=== PATIENT | male | born 1955 | race Caucasian/White ===

== ENCOUNTER → 2018-12-22 | Outpatient (CLI) | payer OTHER ==
[~2018-12-22] MED LIST: LIPITOR40 MG PO
== END | disposition home or self-care (01) ==
LOC: RAD 13:31
DX: R31.9 Hematuria, unspecified (principal); N50.82 Scrotal pain; Z98.890 Other specified postprocedural states; Z79.899 Other long term (current) drug therapy

== ENCOUNTER → 2018-12-29 | Outpatient (CLI) | payer OTHER | END | disposition home or self-care (01) | LOC: RAD 07:51 | DX: C61 Malignant neoplasm of prostate (principal); N99.89 Other postprocedural complications and disorders of genitourinary system; Z79.899 Other long term (current) drug therapy ==

== ENCOUNTER 2019-05-08 11:41 | Emergency (ER) | payer OTHER ==
[~2019-05-08] VITALS: Ht 172.7 cm; Wt 77.1 kg
[2019-05-08 11:43] VITALS: BP 128/82
[2019-05-08] MEDS ORDERED: ADDERALL 20 MG20 M1 PO (11:49)
[2019-05-08] MEDS ORDERED: CENTRUM SILVER1 EAC2 PO (11:50)
[2019-05-08 13:10] LABS: HEMATOCRIT 44.5 % (42.0-52.0); HEMOGLOBIN 14.8 gm/dL (14.0-18.0); MCH 30.3 pg (26.0-34.0); MCHC 33.3 g/dL (28.0-37.0); RBC 4.89 mil/uL (4.50-6.00); RDW 14.4 % (10.5-14.5); WBC 16.9 thou/uL (4.0-11.0)
[2019-05-08 13:17] LABS: CALCIUM 9.1 mg/dL (8.5-10.1); CREATININE 1.1 mg/dL (0.7-1.3); POTASSIUM 3.7 mmol/L (3.5-5.1)
[2019-05-08 13:24] LABS: PROTIME 10.5 Seconds (9.3-11.4)
== END 2019-05-09 02:16 | disposition home or self-care (01) ==
LOC: ER 11:41
PROVIDERS: Physician Assistant
DX: S22.31XA Fracture of one rib, right side, initial encounter for closed fracture (principal); S32.491A Other specified fracture of right acetabulum, initial encounter for closed fracture; E78.5 Hyperlipidemia, unspecified; Z79.899 Other long term (current) drug therapy; W11.XXXA Fall on and from ladder, initial encounter; Y93.89 Activity, other specified; Y92.89 Other specified places as the place of occurrence of the external cause; Y99.9 Unspecified external cause status

== ENCOUNTER 2019-05-14 10:40 | Inpatient (IN) | payer OTHER ==
[~2019-05-14] VITALS: Ht 172.7 cm; Wt 77.1 kg
--- NOTE | ~2019-05-14 | PLAN ---
[facility] [place] [address] REHAB UNIT PLAN OF CARE Name: AMY SUNG Room #: 512-P ADM IN M.R.#: [id number] Admission: 05/14/19 Attend Phys: David Jordan MD Discharge: Date of : 57 Report #: [id number] THIS REPORT FOR: //name// CC: David Philip DATE OF SERVICE: 05/16/2019 PROGRESS NOTE/OVERALL PLAN OF CARE SUBJECTIVE: The patient is seen earlier in followup. He has been in no distress. Temperature 36.7, pulse 81, respirations 20, blood pressure 122/68. He has been working in therapies with transfers, standby assistance. Gait 25 feet front-wheeled walker. He is limited to toe touch weightbearing. In occupational therapy, he has been mod assist for lower body dressing. ASSESSMENT: 1. Right acetabular fracture with right pelvis fracture, status post open reduction and internal fixation on 05/09/2019. He is limited to, toe-touch weightbearing. 2. Ileus, using stool softeners. 3. Acute blood loss anemia. 4. Hyperlipidemia. 5. History of prostate cancer. 6. Factor V deficiency. 7. Deep venous thrombosis prophylaxis. PLAN: The overall plan of care is based on the preadmission screen, post-admission physician evaluation and information garnered from therapy assessments. 1. Estimated length of stay is probably 7-14 days pending progress. 2. Medical prognosis is reasonably good. 3. Anticipated interventions includes the interdisciplinary acute inpatient rehabilitation program. 4. Anticipated functional outcomes would be for the patient to become modified independent with transfers, mobility and ADLs. 5. Discharge destination would be back to the home setting. 6. Expected therapy by discipline includes PT and OT 1-1/2 hours per day each five days a week throughout the duration of the acute inpatient rehabilitation stay. By: [id number] David Jordan MD /[facility]
[~2019-05-14 10:40] MED LIST changes: +ADDERALL 20 MG20 M1 PO; +CENTRUM SILVER1 EAC2 PO
[2019-05-14] MEDS ORDERED: ENOXAPARIN40 MG/0.1 SUBQ (11:41)
[2019-05-14] MEDS ORDERED: ROBAXIN 750 MG750 MG PO (11:42)
[2019-05-14] MEDS ORDERED: MIRALAX17 GM PO (11:44)
[2019-05-14] MEDS ORDERED: APAP650 PO (11:46)
[2019-05-14] MEDS ORDERED: ASPIRIN81 M2 PO (11:48)
[2019-05-14] MEDS ORDERED: LIPITOR 20 MG T20 M1 PO (11:49)
[2019-05-14] MEDS ORDERED: VITAMIN D1000 UNI1 PO (11:50)
[2019-05-14] MEDS ORDERED: FISH OIL-OMEGA1 EACH PO (11:52)
[2019-05-14] MEDS ORDERED: VITAMIN B COMP1 EACH PO (11:54)
--- NOTE | 2019-05-14 13:24 | NUR ---
1245 NEW ADMIT TO ROOM 512. PATIENT IS ALERT AND ORIENTED X4. PATIENT GRIMES'S, WRECKING MECHANIC ARE EQUAL. PATIENT LUNGS ARE CLEAR. ABD IS SOFT WITH BSX4. PATIENT VOIDS PER URINAL. PATIENT PLEASANT AND COOPERATIVE. UP IN CHAIR. AT BEDSIDE. IS R.T. HERE AT [facility]. FALL AND SAFETY PROTOCOLS IN PLACE. DENIES PAIN AT THIS TIME. PATIENT IS TOE TOUCH WT BEARING ONLY AT THIS TIME. PT, OT EVALS IN PROGRESS. WILL CONTINUE TO MONITER.
[2019-05-14 13:30] VITALS: BP 131/78
--- NOTE | 2019-05-14 16:50 | NUR ---
chart review, pt new to [facility] this afternoon. dc from [facility], pt had falling off ladder which is what took him to [facility]. pt is a & o x 4, and able to make his needs know. intro to cm, transition of care, dme, and team meeting. " i am ready to work with therapy and get home"/pt. per pt and chart " lives home with spouse, 2 story home. 2 steps to enter home. stairs inside the home. 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 pt will be able to stay on main level if needed."/mercy and chart. pt has family support. pt ttwb. will cont following as needed for dc needs. pcp dr jorge.
[2019-05-14 19:45] VITALS: BP 114/73
--- NOTE | 2019-05-15 03:45 | NUR ---
ASSUMED CARES AT 0700. PT AWAKE, ALERT AND ORIENTED*4. C/O PAIN ON LEFT HIP/PELVIS, TYLENOL ADMINISTERED NEEDED. BRUISING REMAINS ON LEFT HIP AND PELVIS, INCISION ON LOWER ABDOMEN REMAIN DRY AND INTACT. ABDOMEN SOFT AND ROUND WITH HYPOACTIVE BS. MIRALAX HELD PER PT'S REQUEST (STATED THAT HE'D HAD MULTIPLE LIQUID STOOLS TODAY). UP WITH 1 MIN ASSIST, PIVOT TRANSFERS TO COMMODE/BED, RIGHT LLE REMAINS TTWB. MILD BLE EDEMA, PULSES 2/2. Q1H VISUAL CHECKS. CALL LIGHT WITHIN REACH. FALL PRECAUTIONS IN PLACE
[2019-05-15 05:46] LABS: HEMOGLOBIN 10.7 gm/dL (14.0-18.0); MCHC 33.5 g/dL (28.0-37.0); MCV 92.5 fL (80.0-100.0); RBC 3.46 mil/uL (4.50-6.00); RDW 14.4 % (10.5-14.5); WBC 8.3 thou/uL (4.0-11.0)
[2019-05-15 05:56] LABS: CALCIUM 8.8 mg/dL (8.5-10.1); CREATININE 0.8 mg/dL (0.7-1.3); POTASSIUM 4.1 mmol/L (3.5-5.1)
[2019-05-15 07:30] VITALS: BP 111/79
--- NOTE | 2019-05-15 10:35 | NUR ---
ASSUMED CARE AT 0700. PATIENT IS ALERT AND ORIENTED X4. PATIENT GRIMES'S, HARM REDUCTION WORKER ARE EQUAL. LUNGS ARE CLEAR. ABD IS SOFT WITH BSX4. PATIENT HAD LARGE BM THIS A.M. PATIENT REUFSED MIRALAX. PATIENT IS UP IN CHAIR FOR MEALS. PATIENT IS UP WITH GAIT BELT AND WALKER AND ASSIST OF 1 STAFF. PATIENT IS TOE TOUCH WEIGHT BEARING. FALL AND SAFETY PROTOCOLS IN PLACE. C/O RIGHT HIP PAIN. MEDICATED WITH TYLENTOL PER REQUEST. CONTINUES TO PROGESS SLOWLY TOWARDS D/C GOALS. WILL CONTINUE TO MONITER.
--- NOTE | 2019-05-15 14:03 | NUR ---
Nutrition: pt admitted with acetabular fracture, S/P ORIF on 05/09. Post op course complicated by post op ileus, with need for NGT, aggressive bowel regimen. Pt reports good tolerance of regular diet and has been eating well, > 75%. + BMs. Did report 20# weight loss approx. 6 months ago at time of prostate surgery but has been stable for the past 6 months. No supplements needed at this time. Labs/meds reviewed. Consider low risk at present.
[2019-05-15 20:58] VITALS: BP 122/68
--- NOTE | 2019-05-16 02:51 | NUR ---
ASSUMED CARES AT 0700. PT AWAKE, ALERT AND ORIENTED*4. C/O PAIN 3/10 ON LEFT HIP/PELVIS, TYLENOL ADMINISTERED NEEDED. PT STATED THAT HE HAS TROUBLE FALLING ASLEEP AND WOULD LIKE TO TRY MELATONIN AT BEDTIME TO HELP HIM SLEEP BETTER. SLEPT FROM MIDNIGHT BUT EASILY AROUSABLE. ABDOMINAL INCISION REMAINS DRY AND INTACT, BRUISING REMAINS ON LOWER ABDOMEN AND RIGHT HIP. PT REMAINS TTWB ON RLE. UP WITH 1 MIN ASSIST, PIVOT TRANSFERS AND TOLERATED WELL. Q1H VISUAL CHECKS. CALL LIGHT WITHIN REACH. FALL PRECAUTIONS IN PLACE
[2019-05-16 09:15] VITALS: BP 128/86
--- NOTE | 2019-05-16 16:52 | NUR ---
PT ASSESSED AT START OF SHIFT. PT PROGRESSING WELL. ABD & RLQ DSNG DRY AND INTACT W/ GAUZE AND OPSITE(ORIGINAL SURGICAL DSNG FROM [facility]). ORDER NOT TO CHANGE. PT WALKING W/ WALKER NONWTBEARING ON RT. RESTING IN RECLINER THE MATTRESS IS TOO HOT FOR HIM. BOWELS MOVING WELL. TAKING PLAIN TYLENOL ONLY AND STATES REALLY NOT HURTING.
[2019-05-16 19:30] VITALS: BP 131/77
--- NOTE | 2019-05-16 23:03 | NUR ---
ASSUMED CARE OF PT AT 1915. PT IS A&OX4. IS STABLE. IS ON ROOM AIR. REPORTED MILD PAIN IN RIGHT HIP THAT IS BEING MANAGED WITH COLD THERAPY & PRN PAIN MEDS. SOME BRUISING NOTED. IS UP WITH 1 ASSIST, GB, WALKER & IS NON WEIGHT BARING THE RIGHT. FALL PRECAUTIONS & HOURLY ROUNDING CONTINUED THIS SHIFT. DRSG TO LOWER RIGHT & MID ABDOMEN INTACT. LABS & VITALS REVIEWED. WILL CONTINUE TO MONITOR. PT IS SLEEPING IN RECLINER. CALL LIGHT WITHIN REACH.
[2019-05-17 07:30] VITALS: BP 117/72
--- NOTE | 2019-05-17 10:03 | NUR ---
ASSUMED CARE AT 0700. PATIENT IS ALERT AND ORIENTEDX4. PATIENT GRIMES'S. PATIENT IS TOE TOUCH WEIGHT BEARING ON THE RIGHT. LUNGS ARE CLEAR. ABD IS SOFT WITH BSX4. UP TO THE BATHROOM TO VOID AND HAVE A BM TODAY. UP IN THE CHAIR FOR MEALS. FALL AND SAFETY PROTOCOLS IN PLACE. C/O PAIN IN HIS RIGHT HIP WITH MOVEMENT. NO PAIN WHEN AT REST. CONTINUES TO PROGRESS TOWARDS D/C GOALS. WILL CONTINUE TO MONITER.
[2019-05-17 19:15] VITALS: BP 111/64
--- NOTE | 2019-05-18 03:15 | NUR ---
ASSUMED CARE OF PT AT 1900HRS. PT IS AOX4 AN DLETS NEEDS BE KNOWN. PT SPENT MOST OF THE SHIFT ON A RECLINER. TOE TOUCH WEIGHT BEARING MAINTINED. VSS AND NO S/S OF ACUTE DISTRESS. WILL CONTINUE TO MONITOR.
[2019-05-18 08:40] VITALS: BP 117/78
--- NOTE | 2019-05-18 12:15 | NUR ---
ASSUMED CARE AT 0700. PATIENT IS ALERT AND ORIENTED X4. PATIENT GRIMES'S, PODIATRIC TECHNICIAN ARE EQUAL. LUNGS ARE CLEAR. ABD IS SOFT WITH BSX4. UP TO THE BATHROOM WITH GAIT BELT AND WALKER. PATIENT IS VOIDING TANYA COLORED URINE. PATIENT HAD BM TODAY. FALL AND SAFETY PROTOCOLS IN PLACE. RIGHT HIP INCISION IS CLEAN AND DRY, COVERED WITH TEGADERM AND 2X2. C/O RIGHT HIP INCISION PAIN. UP IN RECLINER FOR ALL MEALS. MEDICATED WITH TYLENOL PO. CONTINUES TO PROGRESS TOWARDS D/C GOALS. PATIENT IS TOE TOUCH WEIGHT BEARING WHEN AMBULATING. WILL CONTINUE TO MONITER.
[2019-05-18 19:30] VITALS: BP 117/67
--- NOTE | 2019-05-19 02:59 | NUR ---
ASSUMED CARES AT 1900. PT AWAKE, ALERT AND ORIENTED*4. C/O MILD RIGHT HIP/PELVIC PAIN, PAIN MED ADMINISTERED NEEDED. VITALS REMAIN STABLE. INCISIONS ON MID ABDOMEN AND RIGHT HIP/PELVIS REMAIN DRY AND INTACT. BRUISING ON RIGHT HIP IMPROVING. PT REMAINS TTWB AND TOLERATES WELL. PT SLEPT IN THE RECLINER STATING THAT HE COULDN'T GET COMFORTABLE ENOUGH TO SLEEP ON THE BED. UP WITH 1 MIN ASSIST, GAITBELT AND WALKER. Q1H VISUAL CHECKS. CALL LIGHT WITHIN REACH. FALL PRECAUTIONS IN PLACE
[2019-05-19 07:31] VITALS: BP 116/67
--- NOTE | 2019-05-19 07:55 | NUR ---
ASSUMED CARE AT 0700. PATIENT IS ALERT AND ORIENTED X4.PATIENT GRIMES'S, GRAFFITI CLEANER ARE EQUAL. LUNGS ARE CLEAR. ABD IS SOFT WITH BSX4. PATIENT IS TOE TOUCH WEIGHT BEARING. PATIENT IS UP WITH WALKER AND SBA TO AMBULATE TO THE BATHROOM TO VOID TANYA COLORED URINE. RIGHT HIP DRESSING DRY AND INTACT. UP IN RECLINER FOR MEALS. FALL AND SAFETY PROTOCOLS IN PLACE. C/O RIGHT HIP PAIN. MEDICATED WITH PRN PAIN MED. CONTINUES TO PROGRESS TOWARDS D/C GOALS. WILL CONTINUE TO MONITER.
--- NOTE | 2019-05-19 13:34 | NUR ---
team meeting, recommendation: dc home 05/21/19 pt ot nursing and fww, and temporary handicap for care. plans on staying with him for week after dc. follow up wit othro after dc.
[2019-05-19 19:07] VITALS: BP 116/69
--- NOTE | 2019-05-20 00:13 | NUR ---
ASSUMED CARES AT 1900. PT AWAKE,ALERT AND ORIENTED*4. C/O RIGHT HIP/PELVIC PAIN, TYLENOL ADMINISTERED NEEDED. VITALS REMAIN STABLE. PT STATED THAT HE'S BEEN HAVING TROUBLE SLEEPING, MELATONIN GIVEN AT 2100 AND WARM MILK PER PT'S REQUEST. PT SLEEPING SINCE 2229 IN THE RECLINER WITH EXTREMITIES ELEVATED. INCISION IN LOWER ABDOMEN AND RIGHT HIP/PELVIS DRY AND INTACT. BRUISE FADING. PT REMAINS TTWB ON RLE AND TOLERATES WELL. UP WITH 1 MIN ASSIST, GAITBELT AND WALKER AND TOLERATED WELL. Q1H VISUAL CHECKS. CALL LIGHT WITHIN REACH. FALL PRECAUTIONS IN PLACE
[2019-05-20 07:45] VITALS: BP 117/74
--- NOTE | 2019-05-20 14:43 | NUR ---
spoke with therapy and md rt use of wheel chair. will need rx and wheel chair form from therapy. will be sent to [facility] pt is in network with pt insurance. will cont to update pt as to if wheel chair will be covered or if pt will need to rent a wheel chair.
--- NOTE | 2019-05-20 14:51 | NUR ---
Patient participated in community reintegration on 05/20/19 with PHYSICAL THERAPIST. Refer to documentation by PHYSICAL THERAPY.
--- NOTE | 2019-05-20 15:38 | NUR ---
DISCHARGE PLANNING. PATIENT IN NEED OF WHEELCHAIR FOR HOME. CLINICAL INFORMATION FAXED TO [facility] PATIENT. UNIT CM TO FAX RX. VERIFIED INFORMATION RECEIVED. FOLLOWING TO ASSIST.
[2019-05-20 18:16] VITALS: BP 117/74
--- NOTE | 2019-05-20 19:15 | NUR ---
PATIENT ALERT AND ORIENTED AND VERY PLEASANT WITH TOE TOUCH WEIGHT BEARING EXPECTING TO DISCHARGE TO HOME TOMORROW. ONLY NEED TYLENOL FOR PAIN TODAY. SPOUSE AT BEDSIDE X2 TODAY.
[2019-05-20 19:30] VITALS: BP 119/73
--- NOTE | 2019-05-21 03:14 | NUR ---
Patient making good progress towards outcome goals. Fall precautions in place. Demonstrates weight bearing preacutions well. Up with SBA with walker. Good pain control with tylenol. Vital signs stable. Sleeping better tonight.
[2019-05-21 07:20] VITALS: BP 115/72
--- NOTE | 2019-05-21 10:20 | NUR ---
spoke with verena at [facility] pt, approved for wheelchair, will be delivered to pt home today. rx giving to pt [facility] pt needs script, copy on pt chart. cm notified pt and . chcs will follow for hh needs. fmla paper work completed per MD lara. brought pt walker to try with therapy.
[2019-05-21] MEDS ORDERED: ROBAXIN 750 MG750 MG PO (10:46)
[2019-05-21] MEDS ORDERED: ENOXAPARIN40 MG/0.1 SUBQ ×2 (10:46→11:01)
[2019-05-21 12:30] VITALS: BP 117/74
--- NOTE | 2019-05-21 15:20 | H ---
[facility] [place] [address] HISTORY AND PHYSICAL Name: AMY SUNG Room #: 512-P [facility] IN M.R.#: [id number] Admission: 05/14/19 Attend Phys: David Jordan MD Discharge: 05/21/19 Date of : 57 Report #: [id number] THIS REPORT FOR: //name// CC: [facility] DATE OF SERVICE: 05/14/2019 HISTORY AND PHYSICAL/POSTADMISSION PHYSICIAN EVALUATION HISTORY OF PRESENT ILLNESS: The patient is a 64-year-old male who was premorbidly active, ambulatory without gait aids, suffered a fall from a ladder, landed on his right side. He sustained a pelvic fracture, right rib fracture, right acetabular fracture. He was initially cared for at [facility] and then transferred to [facility]. He underwent open reduction and internal fixation on 05/09/2019 of the acetabular fracture while at [facility]. He is limited to toe touch weightbearing on that right lower extremity. Postop course was complicated by ileus with an NG tube and place an aggressive bowel regimen. As he further stabilized, he has been transferred now for acute in-hospital inpatient rehabilitation. PAST MEDICAL HISTORY: Includes prostate cancer with recent prostate surgery, history of hyperlipidemia, Factor V deficiency. ALLERGIES: No known drug allergies. MEDICATIONS: Please see the full medication listing. He is on Lovenox for deep vein thrombosis prophylaxis. Per Orthopedics they recommended Lovenox for 5 weeks. HABITS: No tobacco or alcohol abuse. FAMILY HISTORY: Noncontributory. SOCIAL HISTORY: Lives with his , elvia, 2 steps in. She works here at [facility], respiratory therapy. He indicated they are planning on bringing bed down into the dining room so he can stand one floor, shower is upstairs; however. REVIEW OF SYSTEMS: No complaints of chest pain, shortness of breath, abdominal discomfort. He notes he is trying to decrease narcotic usage with the recent ileus. No fever or chills, headache. No other focal extremity pain complaints involving his extremities. He does have some discomfort as expected of that right lower extremity and pelvic area. PHYSICAL EXAMINATION: [facility] [address] [place] [address] HISTORY AND PHYSICAL Name: AMY SUNG Room #: 512-P [facility] IN M.R.#: [id number] Admission: 05/14/19 Attend Phys: David Jordan MD Discharge: 05/21/19 Date of : 57 Report #: [id number] GENERAL: He is a pleasant 64-year-old white male in no obvious distress. Alert, oriented, appropriate. Excellent historian. VITAL SIGNS: Last recorded temperature 98, pulse 87, respirations 18, blood pressure 114/73. HEAD, EYES, EARS, NOSE, AND THROAT: Facies are symmetric. CHEST: Sounded clear to auscultation. CARDIOVASCULAR: Regular rate and rhythm. ABDOMEN: Bowel sounds are decreased, but present. Soft. EXTREMITIES: He does have the incisions, which are dressed with gauze dressing over the hip incision and lower pelvic incision. They appeared dry. No evidence of any drainage. He does have fairly significant ecchymosis along his right lateral thigh. There is no focal calf swelling. Functional range of motion and strength of the upper extremities, right lower extremity tends to favor as expected can dorsiflex that right ankle. Left lower extremity strength is probably at least a grade 4-/5. He has been min assist with basic transfers over [facility] prior to admitting here to [facility]. ASSESSMENT: A 64-year-old white male with the following problem list: 1. Right acetabular fracture with right pelvis fracture, status post open reduction and internal fixation on 05/09/2019. He is limited to toe touch weightbearing and is to be on Lovenox for 5 weeks. 2. Ileus, using stool softeners. 3. Acute blood loss anemia, monitoring his hemoglobin. 4. Hyperlipidemia. 5. History of prostate cancer. 6. Factor V deficiency. 7. Deep venous thrombosis prophylaxis as above. PLAN: The patient is admitted for acute in-hospital inpatient rehabilitation. From a postadmission physician evaluation perspective, there are no relevant changes since the preadmission screening. Please see the above review of prior and current medical and functional conditions and comorbidities. Please see the patient's previous and current functional status. As far as risk of complications, the patient has multiple medical comorbidities. Initial plan of care involves the interdisciplinary acute inpatient rehabilitation program with goal of maximizing his functional independence he can hopefully return back to his prior living situation. Measurable functional goals would be for the patient to become modified independent with transfers, mobility, ADLs and to maximize his independence he can return back to the home setting. Goal will be to maximize independence at the toe touch weightbearing status with a walker. Prognosis is reasonably good with estimated length of stay probably at least [facility] [address] [place] [address] HISTORY AND PHYSICAL Name: AMY SUNG Room #: 467-P DIS IN M.R.#: [id number] Admission: 05/14/19 Attend Phys: David Jordan MD Discharge: 05/21/19 Date of : 57 Report #: [id number] 7-14 days pending progress. Potential barriers would include his multiple medical comorbidities and decreased functional status. <ELECTRONICALLY SIGNED> By: David Jordan MD 05/21/19 1520 [id number] [id number] David Jordan MD /PMT
--- NOTE | 2019-05-21 17:07 | NUR ---
ASSUMED CARE OF PT AT 0715. PT IS A&OX4 AND VITALS ARE STABLE. PT REPORTED PAIN 3/10 IN HIS RIGHT HIP WHICH WAS TREATED WITH PO MEDICAITONS. TOLERATED PO MEDICAITONS WHOLE WITH THIN LIQUIDS. TRANSFERS AND AMBULATES WITH 1 PERSON SBA WITH GAIT BELT AND WALKER. ORDERS FOR D/C GIVEN AND PT SIGNED D/C PAPERWORK AND WAS EDUCATED ON MEDICAITONS, D/C INSTRUCTIONS, AND OTHER D/C PLANS. PT EXPRESSED UNDERSTANDING AND DENIED QUESTIONS. PT TRANSFERED OFF UNIT TO PRIVATE VEHICLE BY [facility] AT APPROX. 1330. PT BELONGINGS REMOVED FROM ROOM BY .
--- NOTE | 2019-05-25 17:22 | HC ---
[facility] [place] [address] CONSULTATION Name: AMY SUNG Room #: 512-P [facility] IN M.R.#: [id number] Admission: 05/14/19 Attend Phys: David Jordan MD Discharge: 05/21/19 Date of : 57 Report #: [id number] THIS REPORT FOR: //name// CC: David Jordan Eugene [facility] DATE OF SERVICE: 05/17/2019 NEUROBEHAVIORAL STATUS EXAM ATTENDING PHYSICIAN: David Jordan MD. ELASTIC YARN TWISTER HELPER: Juan Alberto Solorio, PhD. CLINICAL PRESENTATION: The patient is a 64-year-old male who suffered a pelvic fracture as a result of a fall from a ladder. He reported coming down the ladder and having fallen on his right hip and ribs. He underwent an open reduction and internal fixation of the acetabular fracture and then was transferred to [facility] to complete his rehabilitation program. The patient has a past medical history of prostate cancer with recent prostate surgery, and hyperlipidemia. He had a complicated recovery from his hip surgery and developed an ileus. His diagnoses also included acute blood loss anemia, hyperlipidemia, factor V deficiency, and deep venous thrombosis prophylaxis. A complete description of his medical condition and history can be found in his medical record. Neuropsychological consultation was requested to provide assistance in the assessment of cognitive and emotional status and provide recommendations and services. 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 He is a college graduate. The patient is with 2 children. He reports having a high level of stress from work and home. He is needing to assist in the care of his [id number] as well as maintain his home in [facility] and a house at the [facility]. The patient reports having been diagnosed with attention deficit disorder and using stimulant medication to assist in attention and concentration. TECHNIQUES UTILIZED: Clinical interview, review of medical records, staff consultation and behavioral observation, mini mental status exam 2 standard version, clock drawing, and verbal fluency assessment (letter and category) EXAMINATION FINDINGS: The patient is alert and cooperative with the assessment. He accurately described the reason for his admission. He reports longstanding difficulty with sleep. Appetite has been reduced and he has had a substantial weight loss. He does not report difficulty with memory, word finding or general [address] [address] CONSULTATION Name: AMY SUNG Room #: 512-P [facility] IN .R.#: [id number] Admission: 05/14/19 Attend Phys: David Jordan MD Discharge: 05/21/19 Date of : 57 Report #: [id number] energy level. However, the patient appears quite anxious even though he denies subjective feelings of anxiety and depression. His performance on the MMSE 2 brief version was in the borderline range with a raw score of 13-16, which is a T score of 30 and percentile rank of 2. He was 3/3 for an initial registration, 4/5 for orientation to time, 4/[address], and 2/3 for immediate recall of 3 items after a brief time delay and distraction. His performance on the MMSE 2 standard version was extremely low with a raw score of 22, T score of 21 and percentile rank of less than 1. The patient was 0/5 for serial 7's, 2/2 for naming, 1/1 for repetition, 3/3 for comprehension. He could read and follow single command and write a sentence. The patient was able to successfully copy a simple geometric design; however, increased effort was noted. He voiced concern about why the task was so difficult for him to complete. Clock drawing was within normal limits. However, once again the patient had difficulty in hand placement and expressed concern about the difficult nature of the task. Letter fluency was extremely low with a raw score of 12, T score 25 and percentile rank of 1. Category fluency was in the borderline range with a T score of 29 and percentile rank of 2. The patient expressed concern about the extent of the difficulty he was having on the verbal fluency task. He attributes increased anxiety about performance. The patient is presenting with cognitive deficits. Impairment is noted with sustained concentration and attention along with verbal fluency, which often indicates variability in thought organization. DIAGNOSTIC IMPRESSION: 1. Mild neurocognitive disorder, unspecified, without behavior disorder. 2. Adjustment disorder with anxious mood. 3. Attention deficit hyperactivity disorder -- by history. RECOMMENDATIONS: The patient would benefit from the use of relaxation techniques to assist in the management of anxiety. A followup assessment to clarify cognitive status may also be of benefit. While the use of stimulant can be helpful in the treatment of ADHD, he has a decreased appetite at this time, which may further be affected by the use of stimulant medication. Following discharge from the hospital evaluation for use of an antidepressant with anxiolytic features and psychological counseling to assist with strategies to help manage anxiety. Reframing his fall as an opportunity for him to reevaluate his activities and the distractibility of his environment would also be of benefit his adjustment. Additionally, if cognitive difficulty continues, outpatient neuropsychologicval testing is indicated. [address] [address] CONSULTATION Name: AMY SUNG Room #: 512-P DIS IN M.R.#: [id number] Admission: 05/14/19 Attend Phys: David Jordan MD Discharge: 05/21/19 Date of : 57 Report #: [id number] Thank you very much for allowing me to provide the consultation on this patient. <ELECTRONICALLY SIGNED> By: Juan Alberto Solorio, PhD 05/25/19 1722 1514 [id number] Juan Alberto Solorio, PhD /nt
== END 2019-05-21 14:08 | disposition home health service (06) | DRG 536 ==
LOC: ENTRNSPT 05-21 13:53 → EDTRNSPTSTS 05-21 13:58
PROVIDERS: ADMIT Physical Medicine & Rehabilitation
DX: S32.401A Unspecified fracture of right acetabulum, initial encounter for closed fracture (principal); K56.7 Ileus, unspecified; D62 Acute posthemorrhagic anemia; D68.2 Hereditary deficiency of other clotting factors; E78.5 Hyperlipidemia, unspecified; W11.XXXA Fall on and from ladder, initial encounter; G31.84 Mild cognitive impairment of uncertain or unknown etiology; F43.22 Adjustment disorder with anxiety; F90.9 Attention-deficit hyperactivity disorder, unspecified type; Y93.89 Activity, other specified; Y92.89 Other specified places as the place of occurrence of the external cause; Y99.8 Other external cause status; Z85.46 Personal history of malignant neoplasm of prostate
CPT/HCPCS: 10112

== ENCOUNTER 2019-08-31 10:34 | Day surgery (SDC) | payer OTHER ==
[2019-08-24 13:02] LABS: HEMATOCRIT 49.3 % (42.0-52.0); HEMOGLOBIN 16.3 gm/dL (14.0-18.0); MCH 30.3 pg (26.0-34.0); MCHC 33.1 g/dL (28.0-37.0); MCV 91.8 fL (80.0-100.0); RBC 5.37 mil/uL (4.50-6.00); RDW 13.4 % (10.5-14.5); WBC 5.5 thou/uL (4.0-11.0)
[2019-08-24 13:11] LABS: ALBUMIN 4.2 g/dL (3.4-5.0); CALCIUM 9.5 mg/dL (8.5-10.1); CREATININE 0.9 mg/dL (0.7-1.3)
[2019-08-24 13:15] LABS: PROTIME 9.9 Seconds (9.3-11.4)
[2019-08-24 13:17] LABS: URINE BILIRUBIN NEGATIVE (Negative); URINE BLOOD NEGATIVE (Negative); URINE CLARITY CLEAR; URINE COLOR YELLOW; URINE GLUCOSE-RANDOM* NEGATIVE (Negative); URINE KETONES NEGATIVE (Negative); URINE LEUKOCYTES-REFLEX NEGATIVE (Negative); URINE NITRITE-REFLEX NEGATIVE (Negative); URINE PROTEIN (DIPSTICK) NEGATIVE (Negative); URINE UROBILINOGEN 0.2 E.U./dl (0.2-1.0)
--- NOTE | 2019-08-25 19:09 | EKG ---
[address] [place] [address] ELECTROCARDIOGRAM REPORT Name: AMY SUNG Room #: [facility] [place] [id number] Admission: Attend Phys: Kaleb Mckeon MD Discharge: Date of : 57 Report #: [id number] THIS REPORT FOR: //name// [facility] Test Date: 2019-08-24 Test Time: 13:04:34 Pat Name: AMY SUNG Department: Room: Gender: Secretary: tricia cooley : 1955 Requested By: Kaleb Mckeon Order Number: [id number] MD: Manuel Israel Measurements Intervals [place] Rate: 82 P: 48 DC: 162 QRS: -34 QRSD: 118 T: -6 QT: 385 QTc: 450 Interpretive Statements Sinus rhythm Nonspecific intraventricular conduction delay Borderline T abnormalities, inferior leads Compared to ECG 06/09/1996 11:13:00 No significant change was found Electronically Signed On 08-25-2019 19:08:47 RESOLUTION AGENT by Manuel Israel [email or web address] <ELECTRONICALLY SIGNED> By: Manuel Israel MD, [facility] 08/25/19 1908 1304 130 Manuel Israel MD, FAC /EPI
[~2019-08-31] VITALS: Ht 172.7 cm; Wt 81.6 kg
[~2019-08-31 10:34] MED LIST changes: +APAP650 PO; +ASPIRIN81 M2 PO; +ENOXAPARIN40 MG/0.1 SUBQ; +FISH OIL-OMEGA1 EACH PO; +LIPITOR 20 MG T20 M1 PO; +MIRALAX17 GM PO; +ROBAXIN 750 MG750 MG PO; +VITAMIN B COMP1 EACH PO; +VITAMIN D1000 UNI2 PO
[2019-08-31 11:45] VITALS: BP 149/92
--- NOTE | 2019-08-31 18:13 | NUR ---
ASSUMED CARE OF PT AT 1600. PT ARRIVED IN THE ROOM ON 2.0L OF O2 NASAL CANNULA. VITALS SIGNED WERE OBTAINED UPON ENTERING THE ROOM. SCD'S IN PLACE, ICE PACK WAS GIVEN BUT PT REFUSED, PILLOW PROVIDED FOR PT TO PUT BETWEEN LEGS, PT EXPRESSED THE PILLOW COULD BE APPLIED LATER. PT IS VERY ANXIOUS ABOUT WALKING. EXPLAINED PRECAUTIONS ON GETTING OUT OF BED AND FALL PRECAUTIONS. IV IN R AC DRY AND INTACT. SUNDAR SOUNDS ARE CLEAR. PULSES 2+. PT ABLE TO WIGGLES TOES AND LIFT BOTH LEGS WITH NO PAIN. CALL LIGHT IS WITHIN REACH. WILL CONTINUE TO MONITOR PT UNTIL NOC NURSE IS GIVEN REPORT.
[2019-08-31 21:27] VITALS: BP 134/85
--- NOTE | 2019-09-01 03:17 | NUR ---
ASSUMED PT CARE ON 08/31/19 APPROX 191. PT IS ALERT AND ORIENTED X 4. PT IS IN PT ROOM. PT IS CONCERNED ABOUT THE ELEQUIS AND WHEN IT WOULD START. I EXPLAINED ALL OF THE MEDS I WAS GIVING AND EXPLAINED THE PURPOSE. I INFORMED THE PT THAT HE WOULD BE STARTING THE MED IN THE AM. I HUNG THE PT ANTIBIOTIC. PT HAS VOIDED BUT NOT HAD A BOWEL MOVEMENT. I OFFERED TO HELP THE PT TO THE BEDSIDE AND HE VOICED THAT HE WANTS TO WAIT UNTIL HE SEE'S PT IN THE AM. BED ALARM IS IN LOW POSITION WITH THE CALL LIGHT IN REACH. PT CALL OUT APPROPRIATELY. WILL CONTINUE TO MONITOR.
[2019-09-01 03:44] VITALS: BP 124/78
[2019-09-01 05:27] LABS: HEMATOCRIT 41.6 % (42.0-52.0); HEMOGLOBIN 13.7 gm/dL (14.0-18.0); MCH 30.1 pg (26.0-34.0); MCHC 32.9 g/dL (28.0-37.0); MCV 91.3 fL (80.0-100.0); RBC 4.55 mil/uL (4.50-6.00); RDW 13.7 % (10.5-14.5); WBC 13.8 thou/uL (4.0-11.0)
[2019-09-01 05:30] VITALS: BP 120/79
[2019-09-01 07:20] VITALS: BP 129/79
--- NOTE | 2019-09-01 10:32 | NUR ---
ASSESSMENT-PT LIVES AT HOME WITH HIS WHO WORKS IN RESPIRATORY THERAPY HERE. PT HAS A ROLLER WALKER, A WC AND A SHOWER CHAIR ALREADY. BEDROOM AND BATHROOM LOCATED UP 12 STAIRS BUT PT STATES HE HAS LEARNED TO MANAGE OVER THE PAST 3 MONTHS SINCE HIS ACCIDENT. ASSISTS WITH COOKING, CLEANING AND LAUNDRY. PT VOICES NO CONCERNS RELATED TO DC AND THINKS HE WILL BE READY TO LEAVE AFTER THERAPY THIS AFTERNOON. FOLLOWING TO Assist with dc planning.
[2019-09-01] MEDS ORDERED: HYDROCODON-ACE1 EAC7 PO (14:51)
[2019-09-01] MEDS ORDERED: ELIQUIS5 MG PO (14:51)
[2019-09-01] MEDS ORDERED: MS CONTIN15 MG PO (14:52)
[2019-09-01] MEDS ORDERED: NEURONTIN 300300 M1 PO (14:52)
--- NOTE | 2019-09-01 14:57 | O ---
[facility] [place] [address] OPERATIVE REPORT Name: AMY SUNG Room #: 442-P [facility] M..#: [id number] Admission: 08/31/19 Attend Phys: Kaleb Mckeon MD Discharge: Date of : 57 Report #: [id number] THIS REPORT FOR: //name// CC: Eugene Mckeon DATE OF SERVICE: 08/31/2019 PREOPERATIVE DIAGNOSIS: Left hip osteoarthritis. POSTOPERATIVE DIAGNOSIS: Left hip osteoarthritis. PROCEDURE: Left total hip arthroplasty. SURGEON: Kaleb Mckeon MD. ARMORED VEHICLE OFFICER: Aminah Romano PA-C. INDICATIONS FOR ARMORED VEHICLE OFFICER: Throughout the case, the extensive retraction and manipulation of the hip was required including dislocation and reduction. This was afforded to me by my porcelain buildup assistant. ANESTHESIA: General. IMPLANTS: [employer] size 13 high offset Synergy press-fit stem, a size 56 R3 acetabular cup with one acetabular screw, and a size 40+4 Oxinium head. ESTIMATED BLOOD LOSS: 100 mL. COMPLICATIONS: None. SPECIMENS: None. CONDITION UPON LEAVING THE OPERATING ROOM: Stable. INDICATIONS FOR PROCEDURE: The patient is a 64-year-old gentleman with severe left hip osteoarthritis. He had failed conservative measures for this and after discussion with him, he elected for a left total hip arthroplasty. DESCRIPTION OF PROCEDURE: Risks, benefits, alternatives, and complications were discussed in detail with the patient including, but not limited to, risk of anesthesia, risk of damage to nerves, arteries, or blood vessels, risk for infection or bleeding, risk for a continued hip pain, leg length discrepancy, instability, and need for reoperation. Informed consent was obtained from the patient. Left hip was appropriately marked in the preoperative holding area. IV Ancef was given for preoperative antibiotics. He was brought in the [address] [address] OPERATIVE REPORT Name: AMY SUNG Room #: 442-P [facility] [place]#: [id number] Admission: 08/31/19 Attend Phys: Kaleb Mckeon MD Discharge: Date of : 57 Report #: [id number] operating room and placed in supine position on operating room table. General anesthesia was induced without complication. He was then placed in the right lateral decubitus position with the left hip uppermost. Left hip and lower extremity were then prepped and draped in normal sterile fashion. Timeout was performed, properly identifying the patient and procedure as well as the instrumentation and the implants. All in the operating room were in agreement. Standard posterior approach to the hip was made with 10 blade through the skin. Dissection was taken down to the fascia with Bovie cautery and a Crespo elevator was used to clean the fascia. Fresh 10 blade was used to make a fascial incision. This was taken proximally and distally with curved Thomas scissors. Charnley retractor was placed. Trochanteric bursa was taken down with Bovie cautery. Piriformis tendon was identified, tagged, and taken down with Bovie cautery. Short external rotators were also taken down with Bovie cautery. Capsulotomy was made and capsule ends were tagged for a later repair. Hip was dislocated. There was extensive osteoarthritic change to this femoral head. Femoral neck cut was made 1 cm proximal to lesser trochanter based on preoperative templating and this femoral head was removed. Attention was then turned to the acetabulum. Deep acetabular retractors were placed. The labrum was removed sharply. Pulvinar was removed with Bovie cautery. Acetabulum was then sequentially reamed up to a size 56, at which point, there was excellent bleeding cancellous bone. A size 55 trial cup was placed and found to have a good fit. A final size 56 R3 acetabular cup was placed and seated. One acetabular screw was placed for backup fixation and a polyethylene liner for a 40 head was placed. Attention was then turned to the femur. This was reamed and broached up to a size 13, at which point, the size 13 broach was stable. This was trialed with a high offset neck and a 40+0 head. Hip was reduced, taken through range of motion, found to be stable, found to be somewhat short on the left compared to the right. It was felt we could make up for this with the final implant. Trial components were removed and a final size 13 high offset Synergy press-fit stem was placed. This was trialed with a 40+4 head. The hip was reduced, taken through range of motion, found to be stable, found to have equal leg lengths. Hip was dislocated one last time and the trial head was removed. A final size 40+4 Oxinium head was placed. Hip was reduced, taken through a range of motion, found to be stable, and found to have equal leg lengths. The wound was thoroughly irrigated with normal saline. A periarticular injection consisting of morphine, ropivacaine, epinephrine, and Toradol was placed around the hip joint capsule. A gram of the vancomycin was placed deep in the joint. The capsule and piriformis were repaired with 0 FiberWire and fascia was closed with 0 Vicryl, and skin was closed with 2-0 Vicryl and 3-0 Monocryl. Dermabond and a CHICHO dressing was applied. The patient tolerated this procedure well and went to the recovery room under care of anesthesia postoperatively. <ELECTRONICALLY SIGNED> By: Kaleb Mckeon MD 09/01/19 1457 [id number] aKleb Mckeon MD /nt
[2019-09-01 17:04] VITALS: BP 129/79
--- NOTE | 2019-09-01 17:56 | NUR ---
ASSUMED CARE OF PATIENT AT 0715, PATIENT ALERT AND ORIENTED X 4. PATIENT DENIES PAIN THIS AM, BUT WAS GIVEN SCHEDULED MORPHINE ER WITH AM MEDS. PATIENT WORKED WITH PHYSICAL THERAPY/YODIT AND DID WELL, UP TO THE CHAIR. PATIENT GIVEN HYDROCODONE 5/325MG 1 TABLET WITH LUNCH, WORKED WITH PHYSICAL THERAPY AND DID STAIRS, OK FOR DISCHARGE. RIGHT FOREARM IV IN PLACE, WITH D5NS AT 100CC/HR. RIGHT FOREARM IV REMOVED PRIOR TO DISCHARGE. THIS RN WENT OVER ALL DISCHARGE PAPERWORK WITH THE PATIENT. HERE TO TRANSPORT THE PATIENT HOME.
== END 2019-09-01 18:08 | disposition home or self-care (01) ==
LOC: TBA 10:34 → OR 10:34 → 4S 15:47 → ENTRNSPT 09-01 17:32 → OR 09-01 18:08
PROVIDERS: Orthopaedic Surgery
DX: M16.12 Unilateral primary osteoarthritis, left hip (principal); M25.552 Pain in left hip; E78.00 Pure hypercholesterolemia, unspecified; Z96.641 Presence of right artificial hip joint; Z98.890 Other specified postprocedural states; Z79.899 Other long term (current) drug therapy; Z79.01 Long term (current) use of anticoagulants; Z23 Encounter for immunization
CPT/HCPCS: 10102; 50010; 50101; 50382; 50414; 53000; 53078; 53368; 54118; 56524; 56527; 56528; 56530; 57095; 57103; 62110; 62900; 70005

== ENCOUNTER → 2020-08-04 | Outpatient (CLI) | payer OTHER ==
[~2020-08-04] MED LIST changes: +ELIQUIS5 MG PO; +HYDROCODON-ACE1 EAC7 PO; +MS CONTIN15 MG PO; +NEURONTIN 300300 M1 PO
[2020-08-04 09:59] LABS: ABSOLUTE NEUTROPHILS 3.2 thou/uL (1.4-8.2); BASOPHILS 0.4 % (0.0-2.0); HEMATOCRIT 49.5 % (42.0-52.0); HEMOGLOBIN 16.3 gm/dL (14.0-18.0); LYMPHOCYTES 31.9 % (24.0-44.0); MONOCYTES 11.3 % (1.0-8.0); PLATELET COUNT 192 thou/uL (150-400); POLYS 54.4 % (36.0-66.0); RBC 5.27 mil/uL (4.50-6.00); RDW 14.1 % (10.5-14.5); WBC 5.8 thou/uL (4.0-11.0)
[2020-08-04 10:16] LABS: ANION GAP 9 mmol/L (7-16); BUN 19 mg/dL (7-18); CHLORIDE 103 mmol/L (98-107); CHOLESTEROL 234 mg/dL (<200); CO2 29 mmol/L (21-32); CREATININE 1.2 mg/dL (0.7-1.3); GLUCOSE 104 mg/dL (74-106); HDL CHOLESTEROL 67 mg/dL (>40); LDL CHOLESTEROL 139 mg/dL (<100); POTASSIUM 4.4 mmol/L (3.5-5.1); SGOT 21 U/L (15-37); SGPT 31 U/L (30-65); SODIUM 141 mmol/L (136-145); TC:HDL 3.5 Ratio (Not establshd); TOTAL BILIRUBIN 0.7 mg/dL (0.2-1.0); TOTAL PROTEIN 7.3 g/dL (6.4-8.2); TRIGLYCERIDE 143 mg/dL (<150); VLDL 29 mg/dL (<40)
[2020-08-05 01:06] LABS: PSA < 0.1 ng/mL (0.0-4.0); TESTOSTERONE* 503 ng/dL (264-916)
== END ==
LOC: LAB 08:54
PROVIDERS: ATTEND Family Medicine
DX: C61 Malignant neoplasm of prostate (principal); E78.00 Pure hypercholesterolemia, unspecified; N62 Hypertrophy of breast

== ENCOUNTER → 2021-10-24 | Outpatient (CLI) | payer OTHER ==
[2021-10-24 10:40] LABS: ABSOLUTE NEUTROPHILS 3.5 thou/uL (1.4-8.2); BASOPHILS 0.8 % (0.0-2.0); EOSINOPHILS 1.7 % (0.0-3.0); HEMOGLOBIN 16.3 gm/dL (14.0-18.0); LYMPHOCYTES 31.4 % (24.0-44.0); MCH 30.9 pg (26.0-34.0); MCHC 33.2 g/dL (28.0-37.0); MONOCYTES 10.9 % (1.0-8.0); PLATELET COUNT 197 thou/uL (150-400); POLYS 55.2 % (36.0-66.0); RBC 5.27 mil/uL (4.50-6.00); RDW 13.8 % (10.5-14.5); WBC 6.4 thou/uL (4.0-11.0)
[2021-10-24 10:57] LABS: ALBUMIN 4.1 g/dL (3.4-5.0); ANION GAP 10 mmol/L (7-16); BUN 16 mg/dL (7-18); CALCIUM 9.2 mg/dL (8.5-10.1); CHLORIDE 101 mmol/L (98-107); CHOLESTEROL 190 mg/dL (<200); CO2 29 mmol/L (21-32); GLUCOSE 103 mg/dL (74-106); HDL CHOLESTEROL 73 mg/dL (>40); LDL CHOLESTEROL 86 mg/dL (<100); POTASSIUM 4.3 mmol/L (3.5-5.1); SGOT 23 U/L (15-37); SGPT 36 U/L (30-65); SODIUM 140 mmol/L (136-145); TC:HDL 2.6 Ratio (Not establshd); TOTAL BILIRUBIN 0.7 mg/dL (0.2-1.0); TOTAL PROTEIN 7.6 g/dL (6.4-8.2); TRIGLYCERIDE 156 mg/dL (<150); VLDL 31 mg/dL (<40)
[2021-10-24 22:06] LABS: PSA < 0.1 ng/mL (0.0-4.0); TESTOSTERONE* 437 ng/dL (264-916)
== END ==
LOC: LAB 09:54
PROVIDERS: ATTEND Family Medicine
DX: C61 Malignant neoplasm of prostate (principal); E78.5 Hyperlipidemia, unspecified